=== PATIENT | male | born 1960 | race Caucasian/White ===

== ENCOUNTER 2016-09-06 22:17 | Emergency (ER) | payer OTHER ==
[~2016-09-06] VITALS: Ht 188 cm; Wt 181.4 kg
[~2016-09-06 22:17] MED LIST: Z.0.NO CURRENT MEDS
[2016-09-06 22:19] VITALS: BP 159/78; PULSE 90; RESP 20; TEMP 97.8; O2SAT 94
--- NOTE | 2016-09-07 00:22 | PD ---
HPI Chief Complaint: Medical Clearance Time Seen by Provider: 00:18 Travel History International Travel<30 days: No Contact w/Intl Traveler<30days: No Traveled to known affect area: No History of Present Illness HPI 56-year-old white male presents to emergency room accompanied by his with complaints of progressive shortness of breath, weight gain, pedal edema and general malaise. He also reports worsening chronic back pain into his hips and legs. The patient states that the symptoms have been present now for nearly 6 months. He has gained over 60 pounds. He states that he went to go upstairs tonight and he felt more short of breath in usual which prompted him to come in. His states that she has wanted him to come to a clinic or [facility] now for at least 2-4 months. He is very inactive. He states that he has difficulty doing activities because of his obesity and decreased exercise tolerance. He continues to smoke 2-1/2 packs a cigarettes a day. He denies any fever or chills. No anginal chest pain. No nausea vomiting. No abdominal pain. No dysuria or frequency. PFS Past Medical History Medical History: Denies Significant Hx Tetanus Vaccination: < 5 Years Past Surgical History Surgical History: No Previous Surgery Social History Alcohol Use: Yes (2 1/2 PPD) Tobacco Use: Yes Allergies-Medications (Allergen,Severity, Reaction): Coded Allergies: No Known Allergies (Verified , 09/06/16) Reported Meds & Prescriptions Reported Meds & Active Scripts Active Review of Systems Except as stated in HPI: all other systems reviewed are Neg Physical Exam Narrative GENERAL: Well-developed, morbidly obese in no apparent distress. Nontoxic appearing. HEAD: Normocephalic, atraumatic. EYES: Pupils equal round and reactive. Extraocular motions intact. No scleral icterus. No injection or drainage. ENT: Nose clear. Throat without erythema, tonsillar hypertrophy or exudate. Uvula midline. Airway patent. NECK: Trachea midline. Supple, nontender, moves head freely. No central bony tenderness or spasm. CARDIOVASCULAR: Regular rate and rhythm without murmurs, gallops, or rubs. RESPIRATORY: Breath sounds sound clear but are decreased and slightly distant. GASTROINTESTINAL: Abdomen soft, non-tender, large abdominal pannus. No guarding. EXTREMITIES: No clubbing, cyanosis, 1-to plus pitting pedal edema. Complaints of joint tenderness in both hips. Pulses are present but decreased in both feet. BACK: Nontender without deformity. No flank tenderness. NEUROLOGICAL: Awake, alert and oriented x 3 .Cranial nerves grossly intact. Motor and sensory grossly within normal limits. Normal speech. Data Data Last Documented VS Vital Signs Date Time Temp Pulse Resp B/P Pulse Ox O2 Delivery O2 Flow Rate FiO2 09/07/16 00:40 22 09/06/16 22:19 97.8 90 159/78 94 Orders Complete Blood Count With Diff (09/07/16 00:09) Comprehensive Metabolic Panel (09/07/16 00:09) Urinalysis - C+S If Indicated (09/07/16 00:09) Chest, Pa & Lat (09/07/16 00:09) Iv Access Insert/Monitor (09/07/16 00:09) Labs Laboratory Tests Test 09/07/16 09/07/16 00:30 01:05 White Blood Count 10.2 TH/MM3 Red Blood Count 5.15 MIL/MM3 Hemoglobin 16.1 GM/DL Hematocrit 46.4 % Mean Corpuscular Volume 90.1 FL Mean Corpuscular Hemoglobin 31.2 PG Mean Corpuscular Hemoglobin 34.6 % Concent Red Cell Distribution Width 13.3 % Platelet Count 226 TH/MM3 Mean Platelet Volume 7.9 FL Neutrophils (%) (Auto) 66.1 % Lymphocytes (%) (Auto) 21.2 % Monocytes (%) (Auto) 8.3 % Eosinophils (%) (Auto) 2.9 % Basophils (%) (Auto) 1.5 % Neutrophils # (Auto) 6.8 TH/MM3 Lymphocytes # (Auto) 2.2 TH/MM3 Monocytes # (Auto) 0.8 TH/MM3 Eosinophils # (Auto) 0.3 TH/MM3 Basophils # (Auto) 0.2 TH/MM3 CBC Comment AUTO DIFF Sodium Level 143 MEQ/L Potassium Level 4.2 MEQ/L Chloride Level 106 MEQ/L Carbon Dioxide Level 28.8 MEQ/L Anion Gap 8 MEQ/L Blood Urea Nitrogen 12 MG/DL Creatinine 0.98 MG/DL Estimat Glomerular Filtration 80 ML/MIN Rate Random Glucose 135 MG/DL Calcium Level 9.3 MG/DL Total Bilirubin 0.2 MG/DL Aspartate Amino Transf 22 U/L (AST/SGOT) Alanine Aminotransferase 56 U/L (ALT/SGPT) Alkaline Phosphatase 89 U/L Total Protein 6.8 GM/DL Albumin 3.4 GM/DL Urine Color YELLOW Urine Turbidity CLEAR Urine pH 5.0 Urine Specific [place] 1.021 Urine Protein NEG mg/dL Urine Glucose (UA) NEG mg/dL Urine Ketones NEG mg/dL Urine Occult Blood NEG Urine Nitrite NEG Urine Bilirubin NEG Urine Urobilinogen LESS THAN 2.0 MG/DL Urine Leukocyte Esterase SMALL Urine RBC 1 /hpf Urine WBC 4 /hpf Urine Squamous Epithelial <1 /hpf Cells Urine Transitional Epithelial <1 /hpf Cells Urine Mucus FEW /lpf Microscopic Urinalysis Comment CULT NOT INDICATED MDM Medical Decision Making Medical Screen Exam Complete: Yes Emergency Medical Condition: Yes Medical Record Reviewed: Yes Interpretation(s) Laboratory Tests Test 09/07/16 09/07/16 00:30 01:05 White Blood Count 10.2 TH/MM3 Red Blood Count 5.15 MIL/MM3 Hemoglobin 16.1 GM/DL Hematocrit 46.4 % Mean Corpuscular Volume 90.1 FL Mean Corpuscular Hemoglobin 31.2 PG Mean Corpuscular Hemoglobin 34.6 % Concent Red Cell Distribution Width 13.3 % Platelet Count 226 TH/MM3 Mean Platelet Volume 7.9 FL Neutrophils (%) (Auto) 66.1 % Lymphocytes (%) (Auto) 21.2 % Monocytes (%) (Auto) 8.3 % Eosinophils (%) (Auto) 2.9 % Basophils (%) (Auto) 1.5 % Neutrophils # (Auto) 6.8 TH/MM3 Lymphocytes # (Auto) 2.2 TH/MM3 Monocytes # (Auto) 0.8 TH/MM3 Eosinophils # (Auto) 0.3 TH/MM3 Basophils # (Auto) 0.2 TH/MM3 CBC Comment AUTO DIFF Sodium Level 143 MEQ/L Potassium Level 4.2 MEQ/L Chloride Level 106 MEQ/L Carbon Dioxide Level 28.8 MEQ/L Anion Gap 8 MEQ/L Blood Urea Nitrogen 12 MG/DL Creatinine 0.98 MG/DL Estimat Glomerular Filtration 80 ML/MIN Rate Random Glucose 135 MG/DL Calcium Level 9.3 MG/DL Total Bilirubin 0.2 MG/DL Aspartate Amino Transf 22 U/L (AST/SGOT) Alanine Aminotransferase 56 U/L (ALT/SGPT) Alkaline Phosphatase 89 U/L Total Protein 6.8 GM/DL Albumin 3.4 GM/DL Urine Color YELLOW Urine Turbidity CLEAR Urine pH 5.0 Urine Specific [place] 1.021 Urine Protein NEG mg/dL Urine Glucose (UA) NEG mg/dL Urine Ketones NEG mg/dL Urine Occult Blood NEG Urine Nitrite NEG Urine Bilirubin NEG Urine Urobilinogen LESS THAN 2.0 MG/DL Urine Leukocyte Esterase SMALL Urine RBC 1 /hpf Urine WBC 4 /hpf Urine Squamous Epithelial <1 /hpf Cells Urine Transitional Epithelial <1 /hpf Cells Urine Mucus FEW /lpf Microscopic Urinalysis Comment CULT NOT INDICATED Differential Diagnosis Differential diagnoses: Sleep apnea, COPD, CHF, diabetes, electrolyte abnormality, obesity, deconditioning Narrative Course IV access is obtained. Routine laboratory testing including CBC, chemistry, UA and chest x-ray This is sleep apnea, COPD, morbid obesity, hypertension Diagnosis Primary Impression: Sleep apnea Qualified Code: G47.33 - Obstructive sleep apnea syndrome Additional Impressions: COPD (chronic obstructive pulmonary disease) Qualified Code: J44.9 - Chronic obstructive pulmonary disease, unspecified COPD type Morbid obesity Qualified Code: E66.01 - Morbid obesity due to excess calories Hypertension Qualified Code: I10 - Essential hypertension Patient Instructions: General Instructions Additional Instructions: Rest. Stop smoking/smoking cessation. Weight reduction Albuterol Daily blood pressures. Recheck with a primary care doctor in the next week. Consider sleep study. Med/Other Pt SpecificInfo: Prescription(s) given Disposition: DISCHARGE HOME Condition: Stable Chava Hendricks Sep 07, 2016 00:22
[2016-09-07 00:47] LABS: AUTOMATED NEUTROPHIL # 6.8 TH/MM3 (1.8-7.7); BASOPHIL # 0.2 TH/MM3 (0-0.2); BASOPHIL % 1.5 % (0.0-2.0); EOSINOPHIL # 0.3 TH/MM3 (0-0.4); EOSINOPHIL % 2.9 % (0.0-4.0); HEMATOCRIT 46.4 % (39.0-51.0); LYMPH % 21.2 % (9.0-44.0); LYMPHOCYTE # 2.2 TH/MM3 (1.0-4.8); MEAN CELL VOLUME 90.1 FL (80.0-100.0); MEAN CORPUSCULAR HEMOGLOBIN 31.2 PG (27.0-34.0); MEAN CORPUSCULAR HGB CONC 34.6 % (32.0-36.0); MONO % 8.3 % (0.0-8.0); NEUT % 66.1 % (16.0-70.0); PLATELET COUNT 226 TH/MM3 (150-450); RED BLOOD COUNT 5.15 MIL/MM3 (4.50-5.90); RED CELL DISTRIBUTION WIDTH 13.3 % (11.6-17.2); WHITE BLOOD COUNT 10.2 TH/MM3 (4.0-11.0)
[2016-09-07 00:56] LABS: HEMO FLAGS AUTO DIFF
--- NOTE | 2016-09-07 01:13 | RADRPT ---
EXAM DATE/TIME: 09/07/2016 00:55 [facility] COMPARISON: No previous studies available for comparison. INDICATIONS : Shortness of breath and cough. MEDICAL HISTORY : None. SURGICAL HISTORY : None. ENCOUNTER: Initial ACUITY: >1 year PAIN SCORE: 5/10 LOCATION: Bilateral chest FINDINGS: Cardiomegaly. Clear lungs. Degenerative changes of the spine. CONCLUSION: No acute disease. Enrrique Corona MD on September 07, 2016 at 1:11 Board Certified Radiologist. This report was verified electronically.
[2016-09-07 01:21] LABS: BLOOD, URINE NEG (NEG); COMMENT (UR) CULT NOT INDICATED; CULTURE IF INDICATED CULT NOT INDICATED; GLUCOSE,URINE NEG (NEG); KETONE, URINE NEG (NEG); MUCUS URINE FEW /lpf (OCC); NITRITE,URINE NEG (NEG); SQUAMOUS EPITHELIAL CELL URINE <1 /hpf (0-5); TRANSITIONAL EPI CELLS, URINE <1 /hpf; URINE COLOR YELLOW (YELLW/STRAW)
[2016-09-07 01:24] LABS: ALT (GPT) 56 U/L (12-78); ANION GAP 8 MEQ/L (5-15); AST (GOT) 22 U/L (15-37); BICARBONATE 28.8 MEQ/L (21.0-32.0); BLOOD UREA NITROGEN 12 MG/DL (7-18); CHLORIDE 106 MEQ/L (98-107); GLOMERULAR FILTRATION RATE 80 ML/MIN (>89); POTASSIUM 4.2 MEQ/L (3.5-5.1); SODIUM (NA) 143 MEQ/L (136-145)
[2016-09-07 01:26] LABS: ALKALINE PHOSPHATASE 89 U/L (45-117); TOTAL BILIRUBIN ADULT 0.2 MG/DL (0.2-1.0)
[2016-09-07] MEDS ORDERED: ALBU6.7H INH (01:43)
[2016-09-07 01:49] LABS: PLATELET ESTIMATE SMEAR NORMAL (NORMAL); PLATELET MORPHOLOGY NORMAL (NORMAL); SCAN/DIFF AUTO DIFF CONFIRMED
== END 2016-09-07 02:16 | disposition home or self-care (01) ==
LOC: NEPB 22:17
DX: G47.33 Obstructive sleep apnea (adult) (pediatric) (principal); J44.9 Chronic obstructive pulmonary disease, unspecified; F17.210 Nicotine dependence, cigarettes, uncomplicated; E66.01 Morbid (severe) obesity due to excess calories; I10 Essential (primary) hypertension
CPT/HCPCS: 71020; 80053; 81001; 85025; 99285

== ENCOUNTER → 2016-11-04 | Outpatient (CLI) | payer OTHER ==
[~2016-11-04] MED LIST changes: +ALBU6.7H INH; -Z.0.NO CURRENT MEDS
[2016-11-04 14:12] LABS: BLOOD GAS BASE EXCESS -0.1 mmol/L (-2-2); BLOOD GAS CARBOXYHEMOGLOBIN 6.2 % (0-4); BLOOD GAS HCO3 24 mmol/L (22-26); BLOOD GAS METHEMOGLOBIN 1.3 % (0-2); BLOOD GAS O2 HGB SATURATION 88 % (90-100); BLOOD GAS OXYGEN CONTENT 20.9 Vol % (12.0-20.0); BLOOD GAS PCO2 40 mmHg (38-42); BLOOD GAS PO2 72 mmHg (61-120); TEMP CORR TO 98.6
[2016-11-04 14:13] LABS: CRITICAL VALUE YES; DRAW SITE RT RADIAL; FIO2 21 %; NUMBER OF ARTERIAL PUNCTURES 1; STAT NO; ULNAR PULSE PRESENT
--- NOTE | 2016-11-09 08:05 | RSPPFT ---
DATE OF PROCEDURE: 11/04/16 COMMENTS: Spirometry with FVC 3.4 predicted 5.3, FEV1 of 2.6 predicted 3.8, FEV1/FVC ratio 77% predicted 71%. Lung volumes are within the predicted range. There is a mild increase in air trapping with RV at 3.8 predicted 2.5. DLCO is within the predicted range. IMPRESSION: On the basis of the above, patient has flow values and lung volumes within the predicted range except for the increased residual volume.
== END ==
LOC: HRSP 13:10
PROVIDERS: ATTEND Internal Medicine Pulmonary Disease
DX: G47.30 Sleep apnea, unspecified (principal)
CPT/HCPCS: 36600; 82805; 94060; 94620; 94726; 94729

== ENCOUNTER 2018-08-03 17:10 | Observation (INO) ==
[2018-08-03 23:08] LABS: Baso # (Auto) 0.3 th/mm3 (0.0-0.2); Baso % (Auto) 2.9 % (0.0-2.0); Eos # (Auto) 0.3 th/mm3 (0.0-0.4); Eos % (Auto) 2.7 % (0.0-4.0); Hematocrit 51.2 % (39.0-51.0); Lymph # (Auto) 1.6 th/mm3 (1.0-4.8); Lymph % (Auto) 15.7 % (9.0-44.0); Mean Corpuscular HGB Conc 33.3 % (32.0-36.0); Mean Corpuscular Hemoglobin 30.7 pg (27.0-34.0); Mean Corpuscular Volume 92.3 fL (80.0-100.0); Mean Platelet Volume 7.7 fL (7.0-11.0); Mono # (Auto) 0.8 th/mm3 (0.0-0.9); Mono % (Auto) 7.6 % (0.0-8.0); Neut # (Auto) 7.1 th/mm3 (1.8-7.7); Neut % (Auto) 71.1 % (16.0-70.0); Platelet Count 268 th/mm3 (150-450); Red Blood Count 5.55 mil/mm3 (4.50-5.90); Red Cell Distribution Width 13.8 % (11.6-17.2)
[2018-08-03 23:17] LABS: Activated Partial Thrombo Time 28.5 sec (23.4-31.7); Prothrombin Time 10.5 sec (9.8-11.6)
[2018-08-03 23:47] LABS: C-Reactive Protein 0.86 mg/dL (0.00-0.30); Magnesium 2.2 mg/dL (1.5-2.5)
[2018-08-03] MEDS ORDERED: Vancomycin Inj 1,000 MG in Sodium Chlor 0.9% Inj 250 ML IV.SIG ONE (23:48)
[2018-08-03] MEDS ORDERED: Piperacil/Tazo 3.375 GM Premix 3.375 GM/50 ML PIGGYBACK IV.SIG ONE (23:48)
--- NOTE | 2018-08-03 23:53 | ED ---
HPI General Chief complaint: Skin/Abscess/Foreign Body Stated complaint: Infection Time Seen by Provider: 08/03/18 22:05 Source: patient and family Mode of arrival: ambulatory Limitations: no limitations History of Present Illness HPI narrative: 58-year-old male who presents to the ED for evaluation of synovitis to bilateral legs. Per patient he has had swelling and some deformity to his legs bilaterally for about a year now. Has been worked up for this by his doctor but states that for the past 2 weeks has been having worsening swelling and redness with the redness going all the way to his upper legs as well as some areas of induration especially in the right leg that has never been there before. He went to see his doctor today who recommended that he comes here to get admitted for IV antibiotics. Per patient he was evaluated for this a year ago and was evaluated for the leg swelling. He had per patient labs and imaging that were essentially unremarkable. Ultrasound was done. He was told that he had no CHF and his heart was fine. He states that he has 3 out of 10 pain on the legs. His main concern is a possible infection. He also has some weeping from the right leg. Related Data Home Medications Medication Instructions Recorded Confirmed aspirin [Adult Low Dose Aspirin] 81 mg PO DAILY 02/12/18 08/03/18 atorvastatin 20 mg PO DAILY 02/12/18 08/03/18 ergocalciferol (vitamin D2) 50,000 unit PO QWEEK 02/12/18 08/03/18 [Vitamin D2] furosemide 20 mg PO DAILY PRN 02/12/18 08/03/18 gabapentin 200 mg PO HS 02/12/18 08/03/18 ibuprofen 200 mg PO TID PRN 02/12/18 08/03/18 lisinopril 10 mg PO DAILY 02/12/18 08/03/18 potassium chloride [K-Tab] 10 meq PO DAILY PRN 02/12/18 08/03/18 vitamin B complex [B-Complex] 1 tab PO DAILY 02/12/18 08/03/18 vitamin E 200 unit PO DAILY 02/12/18 08/03/18 Allergies Allergy/AdvReac Type Severity Reaction Status Date / Time No Known Allergies Allergy Verified 02/12/18 12:21 Review of Systems ROS: all other systems reviewed are negative [facility] Medical History Medical History Anxiety (Acute) Arthritis (Acute) COPD (chronic obstructive pulmonary disease) (Acute) Depression (Acute) Diabetes (Acute) GERD (gastroesophageal reflux disease) (Acute) High cholesterol (Acute) Hypertension (Acute) Joint pain (Acute) Kidney stones (Acute) Murmur (Acute) Neuropathy (Acute) No natural teeth (Acute) Swelling (Acute) Vitamin D deficiency (Acute) Surgical History Surgical History History of cataract extraction with lens replacement (Acute) Social History Social History Substance History: No History of Abuse Second Hand Smoke Exposure: No Smoking Status: Current every day smoker Tobacco Type: Cigarettes How Often Do You Have a Drink Containing Alcohol: Never Recent Travel in [facility] within the Last 8 Weeks: No Recent Out of Country Travel within the Last 8 Weeks: No Immunization History Tetanus Immunization: Unsure Exam Narrative Exam Narrative: GENERAL: Well-appearing in no distress. SKIN: Focused skin assessment warm/dry. HEAD: Atraumatic. Normocephalic. EYES: Pupils equal and round. No scleral icterus. No injection or drainage. ENT: No nasal bleeding or discharge. Mucous membranes pink and moist. Tongue is midline. No uvula deviation. NECK: Trachea midline. No JVD. CARDIOVASCULAR: Regular rate and rhythm. No murmur appreciated. RESPIRATORY: No accessory muscle use. Clear to auscultation. Breath sounds equal bilaterally. GASTROINTESTINAL: Abdomen soft, non-tender, nondistended. Hepatic and splenic margins not palpable. MUSCULOSKELETAL: No obvious deformities. No clubbing. No cyanosis. 2+ pitting edema in the lower extremities. Patient has erythema on bilateral legs. More impressive on the right than the left. Most of the erythema seems to be going on the medial aspect as well as in the anterior and posterior aspect. Patient does have some area of drainage from the small leg on the lower extremity. NEUROLOGICAL: Awake and alert. No obvious cranial nerve deficits. Motor grossly within normal limits. Normal speech. PSYCHIATRIC: Appropriate mood and affect; insight and judgment normal. Course Initial Documented Vital Signs Temperature 98.3 F 08/03/18 17:14 Pulse Rate 104 H 08/03/18 17:14 Respiratory Rate 20 08/03/18 17:14 Blood Pressure 145/76 H 08/03/18 17:14 Pulse Oximetry 93 L 08/03/18 17:14 Last Documented Vital Signs Temperature 98.3 F 08/03/18 17:14 Pulse Rate 89 08/03/18 23:22 Respiratory Rate 16 08/03/18 23:22 Blood Pressure 137/70 08/03/18 23:22 Pulse Oximetry 96 08/03/18 23:22 Medical Decision Making MDM Narrative Medical decision making narrative: 58-year-old male who presents to the ED for evaluation of lower leg swelling. Patient was properly examined and was found to have signs and symptoms consistent with appears to be possible cellulitis. Labs and imaging were ordered. Labs and imaging were essentially unremarkable. At this time patient will start IV antibiotics. Patient was sent here for admission for IV antibiotics patient will be admitted for this. I suspect the most of the swelling is likely chronic and possible from vein insufficiency secondary to his weight. Some of the redness especially on the right leg does appear to be infectious in nature. Patient agrees with admission plan. Case discussed with Dr. Hidalgo who agrees to admission to his service. Medical Screen Exam Complete: Yes Emergency Medical Condition: Yes Differential Diagnosis Differential Diagnosis: Cellulitis versus DVT versus chronic leg swelling Medical Records Medical records reviewed: Yes I reviewed the patient's medical records. Lab Data Lab results reviewed: Yes I reviewed the patient's lab results. Result diagrams: 08/03/18 22:40 Lab Results 08/03/18 08/03/18 08/03/18 Range/Units 22:40 22:40 22:40 WBC 10.0 (4.0-11.0) th/mm3 RBC 5.55 (4.50-5.90) mil/mm3 Hgb 17.0 (13.0-17.0) gm/dL Hct 51.2 H (39.0-51.0) % MCV 92.3 (80.0-100.0) fL MCH 30.7 (27.0-34.0) pg MCHC 33.3 (32.0-36.0) % RDW 13.8 (11.6-17.2) % Plt Count 268 (150-450) th/mm3 MPV 7.7 (7.0-11.0) fL Prelim Diff (Auto) Slide review pending Neut % (Auto) 71.1 H (16.0-70.0) % Lymph % (Auto) 15.7 (9.0-44.0) % [place] % (Auto) 7.6 (0.0-8.0) % Eos % (Auto) 2.7 (0.0-4.0) % Baso % (Auto) 2.9 H (0.0-2.0) % Neut # (Auto) 7.1 (1.8-7.7) th/mm3 Lymph # (Auto) 1.6 (1.0-4.8) th/mm3 [place] # (Auto) 0.8 (0.0-0.9) th/mm3 Eos # (Auto) 0.3 (0.0-0.4) th/mm3 Baso # (Auto) 0.3 H (0.0-0.2) th/mm3 Differential Comment . PT 10.5 (9.8-11.6) sec INR 1.0 Ratio APTT 28.5 (23.4-31.7) sec Lactic Acid (0.4-2.0) mmol/L Magnesium 2.2 (1.5-2.5) mg/dL C-Reactive Protein 0.86 H (0.00-0.30) mg/dL 08/03/18 Range/Units 22:46 WBC (4.0-11.0) th/mm3 RBC (4.50-5.90) mil/mm3 Hgb (13.0-17.0) gm/dL Hct (39.0-51.0) % MCV (80.0-100.0) fL MCH (27.0-34.0) pg MCHC (32.0-36.0) % RDW (11.6-17.2) % Plt Count (150-450) th/mm3 MPV (7.0-11.0) fL Prelim Diff (Auto) Neut % (Auto) (16.0-70.0) % Lymph % (Auto) (9.0-44.0) % [place] % (Auto) (0.0-8.0) % Eos % (Auto) (0.0-4.0) % Baso % (Auto) (0.0-2.0) % Neut # (Auto) (1.8-7.7) th/mm3 Lymph # (Auto) (1.0-4.8) th/mm3 [place] # (Auto) (0.0-0.9) th/mm3 Eos # (Auto) (0.0-0.4) th/mm3 Baso # (Auto) (0.0-0.2) th/mm3 Differential Comment PT (9.8-11.6) sec INR Ratio APTT (23.4-31.7) sec Lactic Acid 1.2 (0.4-2.0) mmol/L Magnesium (1.5-2.5) mg/dL C-Reactive Protein (0.00-0.30) mg/dL Discharge Plan Discharge Disposition Patient Disposition: ED Admit(ED Internal Use Only) Discharge Details Diagnosis: Cellulitis Physicians Team ED Provider: Bam Whaley ED Midlevel Provider: Lee Felix Primary Care Provider: Christopher Barroso Rxs /Orders / Referrals /Forms Prescriptions: No Action vitamin E 200 unit Capsule 200 unit PO DAILY RF: 0 atorvastatin 20 mg Tablet 20 mg PO DAILY RF: 0 ibuprofen 200 mg Capsule 200 mg PO TID PRN (Reason: Pain) RF: 0 potassium chloride [K-Tab] 10 mEq Tablet Extended Release 10 meq PO DAILY PRN (Reason: Edema) RF: 0 aspirin [Adult Low Dose Aspirin] 81 mg Tablet,Delayed Release (Dr/Ec) 81 mg PO DAILY RF: 0 lisinopril 10 mg Tablet 10 mg PO DAILY RF: 0 vitamin B complex [B-Complex] Tablet 1 tab PO DAILY RF: 0 furosemide 20 mg Tablet 20 mg PO DAILY PRN (Reason: Edema) RF: 0 gabapentin 100 mg Capsule 200 mg PO HS RF: 0 ergocalciferol (vitamin D2) [Vitamin D2] 50,000 unit Capsule 50,000 unit PO QWEEK RF: 0 Discharge Interventions Interventions: Vital Signs Last Done: 08/03/18 23:22 Status ED Status: Admitted Observation Patient
[2018-08-03 23:56] LABS: Platelet Estimate Normal (Normal); Platelet Morphology Normal (Normal)
--- NOTE | 2018-08-03 23:56 | US ---
EXAM DATE: 08/03/2018 11:53 PM EST AGE/SEX: 58 years / Male INDICATIONS: Bilateral leg swelling. CLINICAL DATA: This is the patient's initial encounter. Patient reports that signs and symptoms have been present for 1 day and indicates a pain score of 5/10. MEDICAL/SURGICAL HISTORY: Chronic obstructive pulmonary disease. Gastroesophageal reflux disea se. Hypertension. Kidney stones. Anxiety. Arthritis. Diabetes. High cholesterol. Cataracts. . Isabella ract surgery. COMPARISON: No prior exams available for comparison. TECHNIQUE: Venous ultrasound of both lower extremities was performed from the inguinal ligament to t he proximal calf. Real-time, color Doppler and spectral tracing, compression and augmentation techni ques were used. FINDINGS: Right Leg: Normal compression of the deep venous system from the inguinal region to the proximal igor f. No echogenic clot is seen. Normal response of the venous system to augmentation and respiration. Left Leg: Normal compression of the deep venous system from the inguinal region to the proximal calf . No echogenic clot is seen. Normal response of the venous system to augmentation and respiration. Other: None. CONCLUSION: The study is negative for bilateral lower extremity deep venous thrombosis. Electronically signed by: Rodolfo Bhandari MD Board Certified Radiologist 08/03/2018 11:54 PM EST
[2018-08-04] MEDS ORDERED: Dextrose 50% in Water 50 ML Vial IV.PUSH PRN (00:10)
[2018-08-04] MEDS ORDERED: Furosemide 20 MG Tablet PO PRN (00:11)
[2018-08-04] MEDS ORDERED: Vancomycin Consult Pharmacy OTHER PRN (08:59)
--- NOTE | 2018-08-04 09:01 | P.HPIM ---
History of Present Illness Primary Care Physician: Christopher Barroso MD Chief Complaint: BLE edema History of Present Illness: Mr Santillan is a 58-year-old male patient with past medical history which includes hyperlipidemia, hypertension, DM, ED, obesity, chronic lower extremity edema and pain. Patient presents to the ED for evaluation of bilateral lower extremity edema and erythema. Per patient he has had swelling and some change in color to his legs bilaterally for about a year now. Patient states that for the past 2 weeks has been having worsening swelling and redness with the redness going all the way to his upper legs as well as some areas of induration especially in the right leg that has never been there before. He went to see his doctor today who recommended that he comes here to get admitted for IV antibiotics. He states that he has 3 out of 10 pain on the legs. His main concern is a possible infection. Patient denies fevers, chills, N/V/D/C, chest pain or shortness of breath. Past medical history: Hyperlipidemia, hypertension, DM, ED, obesity, chronic lower extremity edema and pain Past surgical history: Denies prior surgeries Social history: Occasional EtOH use not on a regular basis Daily smoker smokes 2-3 packs/day for 10 years, has been smoking for over 40 years Also smokes marijuana occasionally not on a daily basis Denies other illicit drug use Family medical history: Dementia, macular degeneration, seizures, CVA, hypertension and heart disease Medications and Allergies Allergies Allergy/AdvReac Type Severity Reaction Status Date / Time No Known Allergies Allergy Verified 02/12/18 12:21 Home Medications Medication Instructions Recorded Confirmed Type aspirin [Adult Low Dose Aspirin] 81 mg PO DAILY 02/12/18 08/03/18 History atorvastatin 20 mg PO DAILY 02/12/18 08/03/18 History ergocalciferol (vitamin D2) 50,000 unit PO QWEEK 02/12/18 08/03/18 History [Vitamin D2] furosemide 20 mg PO DAILY PRN 02/12/18 08/03/18 History gabapentin 200 mg PO HS 02/12/18 08/03/18 History ibuprofen 200 mg PO TID PRN 02/12/18 08/03/18 History lisinopril 10 mg PO DAILY 02/12/18 08/03/18 History potassium chloride [K-Tab] 10 meq PO DAILY PRN 02/12/18 08/03/18 History vitamin B complex [B-Complex] 1 tab PO DAILY 02/12/18 08/03/18 History vitamin E 200 unit PO DAILY 02/12/18 08/03/18 History Active Medications: Active Medications Aspirin (Ecotrin) 81 mg PO DAILY [facility] Last Admin: 08/04/18 08:06 Dose: 81 mg Atorvastatin Calcium (Lipitor) 20 mg PO DAILY [facility] Last Admin: 08/04/18 08:06 Dose: 20 mg Dextrose (D50w Vial) 50 ml IV.PUSH UNSCH PRN PRN Reason: PER HYPOGLYCEMIA PROTOCOL Furosemide (Lasix) 20 mg PO DAILY PRN PRN Reason: DIURETIC Gabapentin (Neurontin) 200 mg PO HS NOLVIA Glucagon (Glucagon Inj) 1 mg OTHER PRN PRN PRN Reason: for Hypoglycemia Protocol Insulin Aspart (Novolog Insulin Correctional Sugar Inj) 0 unit SQ ACHS [facility]; Protocol Potassium Chloride (Klor-Con 10) 10 meq PO DAILY PRN PRN Reason: POTASSIUM REPLACEMENT Physical Exam Vital signs: Last Vital Signs Temp 97.8 F 08/04/18 08:00 Pulse 107 H 08/04/18 08:00 Resp 14 08/04/18 08:00 BP 144/74 H 08/04/18 08:00 Pulse Ox 94 L 08/04/18 08:00 Narrative: GENERAL: This is a morbidly obese 58-year-old male who appears older than stated age. SKIN: Bilateral lower extremities edematous with erythema present, warm to the touch. CARDIOVASCULAR: Regular rate and rhythm RESPIRATORY: Clear to auscultation. Breath sounds equal bilaterally. GASTROINTESTINAL: Abdomen soft, non-tender, nondistended. Normal active bowel sounds MUSCULOSKELETAL: Extremities without clubbing, cyanosis. NEURO: Alert & Oriented . Moves all ext x4 Results Labs CBC & Chem 7: 08/03/18 22:40 08/04/18 09:29 Caprini VTE Risk Assessment Caprini VTE Risk Assessment: Moderate/High Risk (score >= 2) Caprini Risk Assessment Model: Point Value = 1 Point Value = 2 Point Value = 3 Point Value = 5 Age 41-60 Minor surgery BMI > 25 kg/m2 Swollen legs Varicose veins or History of unexplained or recurrent spontaneous Oral contraceptives or hormone replacement Sepsis (< 1 month) Serious lung disease, including pneumonia (< 1 month) Abnormal pulmonary function Acute myocardial infarction Congestive heart failure (< 1 month) History of inflammatory bowel disease Medical patient at bed rest Age 61-74 Arthroscopic surgery Major open surgery (> 45 min) Laparoscopic surgery (> 45 min) Malignancy Confined to bed (> 72 hours) Immobilizing plaster cast Central venous access Age >= 75 History of VTE Family history of VTE Factor V Leiden Prothrombin [id number] Lupus anticoagulant Anticardiolipin antibodies Elevated serum homocysteine Heparin-induced thrombocytopenia Other congenital or acquired thrombophilia Stroke (< 1 month) Elective arthroplasty Hip, pelvis, or leg fracture Acute spinal cord injury (< 1 month) Prophylaxis Regimen: Total Risk Factor Score Risk Level Prophylaxis Regimen 0-1 Low Early ambulation 2 Moderate Order ONE of the following: *Sequential Compression Device (SCD) *Heparin 5000 units SQ BID 3-4 Higher Order ONE of the following medications: *Heparin 5000 units SQ TID *Enoxaparin/Lovenox 40 mg SQ daily (WT < 150 kg, CrCl > 30 mL/min) *Enoxaparin/Lovenox 30 mg SQ daily (WT < 150 kg, CrCl > 10-29 mL/min) *Enoxaparin/Lovenox 30 mg SQ BID (WT < 150 kg, CrCl > 30 mL/min) AND/OR *Sequential Compression Device (SCD) 5 or more Highest Order ONE of the following medications: *Heparin 5000 units SQ TID (Preferred with Epidurals) *Enoxaparin/Lovenox 40 mg SQ daily (WT < 150 kg, CrCl > 30 mL/min) *Enoxaparin/Lovenox 30 mg SQ daily (WT < 150 kg, CrCl > 10-29 mL/min) *Enoxaparin/Lovenox 30 mg SQ BID (WT < 150 kg, CrCl > 30 mL/min) AND *Sequential Compression Device (SCD) Assessment and Plan Plan Cellulitis bilateral lower extremities Ultrasound negative for bilateral lower extremity DVT Patient started on vancomycin and Zosyn in the emergency department We will continue vancomycin and Zosyn Patient is also on Lasix with potassium for chronic lower extremity edema BMP ordered and pending Hypertension Continue patient's home lisinopril 10 mg daily Hyperlipidemia continue patient's home atorvastatin 20 mg daily Lovenox for DVT prophylaxis H&P: Quality VTE Deep Vein Thrombosis/Pulmonary Embolism Present on Admission: No
[2018-08-04] MEDS: Insulin NovoLOG Aspart Correctional Sugar Inj SQ SCH ×4 (09:31→21:17)
[2018-08-04 10:17] LABS: Anion Gap 5 meq/L (5-15); Blood Urea Nitrogen 12 mg/dL (7-18); Calcium 8.7 mg/dL (8.5-10.1); Carbon Dioxide 30.1 meq/L (21.0-32.0); Chloride 104 meq/L (98-107); Glomerular Filtration Rate Greater Than 89 mL/min (>89); Glucose,Random 122 mg/dL (74-106); Potassium 4.1 meq/L (3.5-5.1); Sodium 139 meq/L (136-145)
[2018-08-04] MEDS: Enoxaparin Inj 40 MG/0.4 ML Syringe SQ SCH (10:26)
[2018-08-04] MEDS: Piperacil/Tazo 3.375 GM Premix 3.375 GM/50 ML PIGGYBACK IV.SIG SCH ×3 (10:26→23:34)
[2018-08-04] MEDS: Vancomycin Inj 2,000 MG in Sodium Chlor 0.9% Inj 500 ML IV.SIG SCH (11:54)
[2018-08-04 12:21] LABS: Hemoglobin A1c 7.2 % (4.3-6.0)
[2018-08-04] MEDS ORDERED: Gabapentin 100 MG Capsule PO SCH (21:00)
[2018-08-05] MEDS: Vancomycin Inj 2,000 MG in Sodium Chlor 0.9% Inj 500 ML IV.SIG SCH ×2 (03:50→14:15)
[2018-08-05] MEDS: Piperacil/Tazo 3.375 GM Premix 3.375 GM/50 ML PIGGYBACK IV.SIG SCH ×3 (05:02→16:15)
[2018-08-05 07:51] VITALS: RESP 18
[2018-08-05 08:14] LABS: Baso # (Auto) 0.1 th/mm3 (0.0-0.2); Baso % (Auto) 0.9 % (0.0-2.0); Eos # (Auto) 0.2 th/mm3 (0.0-0.4); Eos % (Auto) 2.7 % (0.0-4.0); Hematocrit 49.9 % (39.0-51.0); Hemoglobin 16.7 gm/dL (13.0-17.0); Lymph # (Auto) 1.6 th/mm3 (1.0-4.8); Lymph % (Auto) 18.5 % (9.0-44.0); Mean Corpuscular HGB Conc 33.4 % (32.0-36.0); Mean Corpuscular Hemoglobin 30.7 pg (27.0-34.0); Mean Platelet Volume 7.7 fL (7.0-11.0); Mono # (Auto) 0.7 th/mm3 (0.0-0.9); Mono % (Auto) 8.6 % (0.0-8.0); Neut # (Auto) 5.9 th/mm3 (1.8-7.7); Neut % (Auto) 69.3 % (16.0-70.0); Platelet Count 252 th/mm3 (150-450); Red Blood Count 5.42 mil/mm3 (4.50-5.90); Red Cell Distribution Width 13.8 % (11.6-17.2); White Blood Count 8.5 th/mm3 (4.0-11.0)
[2018-08-05 08:32] LABS: Carbon Dioxide 29.6 meq/L (21.0-32.0); Magnesium 2.4 mg/dL (1.5-2.5); Potassium 4.2 meq/L (3.5-5.1)
[2018-08-05] MEDS: Enoxaparin Inj 40 MG/0.4 ML Syringe SQ SCH (08:56)
[2018-08-05] MEDS ORDERED: Lisinopril 10 MG Tablet PO SCH (09:00)
--- NOTE | 2018-08-05 09:41 | P.PNIM ---
Subjective Interval history: Patient offers no new concerns/complaints BLE less red and less swollen today Physical Exam Vital signs: Last Vital Signs Temp 98.2 F 08/05/18 07:50 Pulse 101 H 08/05/18 07:50 Resp 18 08/05/18 07:50 BP 123/73 08/05/18 07:50 Pulse Ox 95 08/05/18 07:50 Narrative: GENERAL: This is a morbidly obese 58-year-old male who appears older than stated age. SKIN: Bilateral lower extremities edematous with erythema present, warm to the touch - improving CARDIOVASCULAR: Regular rate and rhythm RESPIRATORY: Clear to auscultation. Breath sounds equal bilaterally. GASTROINTESTINAL: Abdomen soft, non-tender, nondistended. Normal active bowel sounds MUSCULOSKELETAL: Extremities without clubbing, cyanosis. NEURO: Alert & Oriented . Moves all ext x4 Results Labs CBC & Chem 7: 08/05/18 07:53 08/05/18 07:53 Assessment and Plan Plan Cellulitis bilateral lower extremities Ultrasound negative for bilateral lower extremity DVT Patient started on vancomycin and Zosyn in the emergency department We will continue vancomycin and Zosyn Patient is also on Lasix with potassium for chronic lower extremity edema takes PRN Lasix 40 mg IV BID with potassium creatinine 1.02, potassium 4.2 Hypertension Continue patient's home lisinopril 10 mg daily Hyperlipidemia continue patient's home atorvastatin 20 mg daily Diabetes Mellitus HA1c- 7.2 Patient reports he was on Jardiance but stopped taking that due to cost Start metformin 50 mg PO BID accuchecks ACHS Sleep Apnea Patient may use home CPAP Lovenox for DVT prophylaxis Progress Note: Quality VTE Deep Vein Thrombosis/Pulmonary Embolism Present on Admission: No
[2018-08-05] MEDS: Insulin NovoLOG Aspart Correctional Sugar Inj SQ SCH ×3 (09:42→17:01)
[2018-08-05 12:02] VITALS: TEMP 98.6; O2SAT 98
--- NOTE | 2018-08-05 12:21 | ECHRPT ---
Indication: HEART FAILURE CONCLUSIONS Normal left ventricular size. Mild concentric left ventricular hypertrophy. The left ventricular systolic function is low normal with an estimated ejection fraction in the rang e of 50- 55%. Trace aortic valve regurgitation. There is trace tricuspid valve regurgitation. BP: / HR: Rhythm: Sinus MEASUREMENTS (Male / Female) Normal Values Technical Quality:Technically difficult study 2D ECHO LV Diastolic Diameter PLAX 5.7 cm 4.2 - 5.9 / 3.9 - 5.3 cm LV Systolic Diameter PLAX 4.3 cm IVS Diastolic Thickness 1.2 cm 0.6 - 1.0 / 0.6 - 0.9 cm LVPW Diastolic Thickness 1.2 cm 0.6 - 1.0 / 0.6 - 0.9 cm LV Relative Wall Thickness 0.4 RV Internal Dim ED PLAX 2.6 cm LVOT Diameter 2.2 cm Aortic Root Diameter 3.5 cm M-MODE AV Cusp Separation MM 2.5 cm DOPPLER AV Peak Velocity 116.0 cm/s AV Peak Gradient 5.4 mmHg AV Mean Gradient 3.0 mmHg AV Velocity Time Integral 14.8 cm LVOT Peak Velocity 69.2 cm/s LVOT Peak Gradient 1.9 mmHg LVOT Velocity Time Integral 9.4 cm AV Area Cont Eq vti 2.4 cm AV Area Cont Eq pk 2.3 cm Mitral E Point Velocity 64.7 cm/s Mitral A Point Velocity 71.1 cm/s Mitral E to A Ratio 0.9 PV Peak Velocity 51.1 cm/s PV Peak Gradient 1.0 mmHg FINDINGS LEFT VENTRICLE Normal left ventricular size. Mild concentric left ventricular hypertrophy. The left ventricular systolic function is low normal with an estimated ejection fraction in the rang e of 50- 55%. RIGHT VENTRICLE Normal right ventricular size and systolic function. LEFT ATRIUM The left atrial size is normal. RIGHT ATRIUM The right atrial size is normal. ATRIAL SEPTUM No atrial level shunt is demonstrated by color flow Doppler interrogation. AORTA The aortic root and proximal ascending aorta are normal in size on limited imaging. MITRAL VALVE Structurally normal mitral valve. No mitral valve stenosis or regurgitation. AORTIC VALVE Trileaflet aortic valve. No aortic valve stenosis or regurgitation. Trace aortic valve regurgitation. TRICUSPID VALVE There is trace tricuspid valve regurgitation. PULMONARY VALVE The pulmonary valve is not well visualized. VESSELS The inferior vena cava was not well visualized. PERICARDIUM No pericardial effusion. Cale Rojo MD, FACC, FSCAI (Electronically Signed) Final Date:05 August 2018 12:20
[2018-08-05 16:42] VITALS: BP 125/65; PULSE 86
[2018-08-05] MEDS ORDERED: Pharmacy Ordered Lab Info OTHER ONE (23:45)
== END 2018-08-05 17:22 | disposition home or self-care (01) ==
LOC: NEPE 17:10 → NEDA 17:10 → NEPFCDU 08-04 00:56
PROVIDERS: ADMIT Hospitalist; ATTEND Hospitalist
DX: M19.90 Unspecified osteoarthritis, unspecified site; I10 Essential (primary) hypertension; Z79.899 Other long term (current) drug therapy; E66.01 Morbid (severe) obesity due to excess calories; E11.42 Type 2 diabetes mellitus with diabetic polyneuropathy; L03.116 Cellulitis of left lower limb; K21.9 Gastro-esophageal reflux disease without esophagitis; Z79.82 Long term (current) use of aspirin; G47.30 Sleep apnea, unspecified; L03.115 Cellulitis of right lower limb; E78.5 Hyperlipidemia, unspecified; K00.0 Anodontia; F41.9 Anxiety disorder, unspecified; F32.9 Major depressive disorder, single episode, unspecified; F17.210 Nicotine dependence, cigarettes, uncomplicated; J44.9 Chronic obstructive pulmonary disease, unspecified
CPT/HCPCS: 80048; 82948; 82962; 83036; 83605; 83735; 85025; 85610; 85730; 86140; 87040; 87070; 87077; 87205; 93306; 93970; 96365; 96366; 96367; 96368; 96375; 96376; 99285; G0378; J1650; J1940; J2543; J3370; J7040; J7050